=== PATIENT | male | born 1975 | race Caucasian/White ===

== ENCOUNTER 2019-10-28 13:39 | Emergency (ER) | payer MEDICAID, OTHER ==
[~2019-10-28] VITALS: Ht 180.3 cm; Wt 95.5 kg
[2019-10-28 13:41] VITALS: BP 129/77
== END 2019-10-28 15:03 | disposition home or self-care (01) ==
LOC: ED 14:05
DX: R06.00 Dyspnea, unspecified (principal); T43.591A Poisoning by other antipsychotics and neuroleptics, accidental (unintentional), initial encounter; Z87.891 Personal history of nicotine dependence
CPT/HCPCS: 99281